=== PATIENT | female | born 1955 | race African-American/Black ===

== ENCOUNTER 2017-01-19 12:49 | Emergency (ER) | payer MEDICAID ==
[~2017-01-19] VITALS: Ht 160 cm; Wt 64.0 kg
[~2017-01-19 12:49] MED LIST: ASPI-1035 PO; ATOR40TA70 PO; HYDR-4134 PO; SERT25TA PO
[2017-01-19] MEDS ORDERED: LORAZEPAM 1MG TABLET PO ONE (14:00)
[2017-01-19 15:12] VITALS: BP 137/77
== END 2017-01-19 15:13 | disposition home or self-care (01) ==
LOC: ER 14:44
DX: F41.0 Panic disorder [episodic paroxysmal anxiety] (principal); I10 Essential (primary) hypertension; Z86.73 Personal history of transient ischemic attack (TIA), and cerebral infarction without residual deficits
CPT/HCPCS: 99283

== ENCOUNTER 2017-04-06 13:26 | Emergency (ER) | payer MEDICAID, OTHER ==
[~2017-04-06] VITALS: Ht 165.1 cm; Wt 77.0 kg
[~2017-04-06 13:26] MED LIST changes: -ASPI-1035 PO; +ASPI-1159 PO
[2017-04-06 18:03] VITALS: BP 128/76
[2017-04-06] MEDS ORDERED: LORAZEPAM 0.5MG TABLET PO ONE (18:15)
== END 2017-04-06 18:42 | disposition home or self-care (01) ==
LOC: ER 14:04
DX: F41.9 Anxiety disorder, unspecified (principal); R20.2 Paresthesia of skin; I10 Essential (primary) hypertension; Z86.73 Personal history of transient ischemic attack (TIA), and cerebral infarction without residual deficits
CPT/HCPCS: 99284; Z7610

== ENCOUNTER 2017-04-10 10:17 | Emergency (ER) | payer MEDICAID, OTHER ==
[~2017-04-10] VITALS: Ht 165.1 cm; Wt 77.0 kg
[2017-04-10 11:56] VITALS: BP 131/77
== END 2017-04-10 11:58 | disposition home or self-care (01) ==
LOC: ER 11:28
DX: F41.9 Anxiety disorder, unspecified (principal); I10 Essential (primary) hypertension; Z86.73 Personal history of transient ischemic attack (TIA), and cerebral infarction without residual deficits; Z79.82 Long term (current) use of aspirin
CPT/HCPCS: 99284

== ENCOUNTER 2018-05-26 13:30 | Inpatient (IN) | payer MEDICARE, MEDICAID ==
[~2018-05-26] VITALS: Ht 167.6 cm; Wt 71.4 kg
[2018-05-26] MEDS ORDERED: SODIUM CHLORIDE 0.9% 1,000 ML IV ONE (14:16)
[2018-05-26 15:22] LABS: BASOPHILS % 0.5 % (0.0-2.0); EOSINOPHILS % 0.3 % (0.0-5.0); HEMATOCRIT. 37.9 % (36.0-48.0); HEMOGLOBIN. 12.7 g/dL (12.0-16.0); LYMPHOCYTES % 29.4 % (20.0-50.0); MEAN CORPUSCULAR HEMOGLOBIN 29.5 pg (28.0-32.0); MEAN CORPUSCULAR VOLUME 88.4 fL (81.0-99.0); MEAN PLATELET VOLUME 11.2 fl (7.4-10.4); MONOCYTES % 7.6 % (2.0-8.0); NEUTROPHILS % 62.2 % (40.0-76.0); PLATELET 194 x1000/uL (130-400); RED BLOOD CELL COUNT 4.29 mill/uL (4.2-5.4); RED CELL DISTRIBUTION WIDTH 14.1 % (11.6-14.6)
[2018-05-26 15:27] LABS: INR 1.1; PROTHROMBIN TIME 11.4 sec (9.1-11.1)
[2018-05-26 15:40] LABS: CHLORIDE 107 mEq/L (98-107)
[2018-05-26 15:48] LABS: CLARITY URINE CLOUDY (CLEAR); COLOR URINE YELLOW (YELLOW); KETONES URINE NEGATIVE (NEGATIVE); LEUKOCYTE ESTERASE URINE NEGATIVE (NEGATIVE); NITRITE URINE NEGATIVE (NEGATIVE); OCCULT BLOOD URINE NEGATIVE (NEGATIVE); PROTEIN URINE NEGATIVE (NEGATIVE); SPECIFIC GRAVITY URINE 1.005 (1.005-1.030)
[2018-05-26 20:00] VITALS: BP 157/66
[2018-05-26] MEDS ORDERED: DEXTROSE 50% WATER 50ML SYRINGE IV PRN (22:15)
[2018-05-26] MEDS ORDERED: ONDANSETRON 4MG ODT PO PRN (22:15)
[2018-05-26] MEDS ORDERED: ACETAMINOPHEN 325MG TABLET PO PRN (22:15)
[2018-05-26 23:19] VITALS: BP 157/66
[2018-05-27] VITALS: BP 130/49
[2018-05-27 04:00] VITALS: BP 136/58
[2018-05-27] MEDS: BLOOD SUGAR DIAGNOSTIC STRIP TEST SCH ×4 (07:20→21:00)
[2018-05-27 07:34] LABS: BASOPHILS % 0.7 % (0.0-2.0); EOSINOPHILS % 1.1 % (0.0-5.0); HEMATOCRIT. 36.3 % (36.0-48.0); HEMOGLOBIN. 12.1 g/dL (12.0-16.0); LYMPHOCYTES % 45.4 % (20.0-50.0); MEAN CORPUSCULAR HEMOGLOBIN 29.5 pg (28.0-32.0); MEAN CORPUSCULAR VOLUME 88.3 fL (81.0-99.0); MEAN PLATELET VOLUME 10.9 fl (7.4-10.4); MONOCYTES % 8.9 % (2.0-8.0); NEUTROPHILS % 43.9 % (40.0-76.0); PLATELET 181 x1000/uL (130-400); RED BLOOD CELL COUNT 4.11 mill/uL (4.2-5.4); RED CELL DISTRIBUTION WIDTH 13.9 % (11.6-14.6)
[2018-05-27] MEDS: INSULIN LISPRO 100 UNITS/ML SUBCUT SCH ×4 (07:50→21:00)
[2018-05-27 07:59] LABS: CHLORIDE 110 mEq/L (98-107)
[2018-05-27 09:34] VITALS: BP 162/69
[2018-05-27] MEDS: NIFEDIPINE XL 30MG TAB PO SCH (12:45)
[2018-05-27 13:14] VITALS: BP 144/66
[2018-05-27] MEDS: HYDRALAZINE HCL 25MG TABLET PO SCH ×2 (14:42→22:02)
[2018-05-27] MEDS: ENOXAPARIN 40MG/0.4ML SYR SUBCUT SCH (14:48)
[2018-05-27] MEDS ORDERED: ATROPINE SULFATE 1MG/10ML SYR IV PRN (15:00)
[2018-05-27 17:15] VITALS: BP 161/60
[2018-05-27 19:26] LABS: *AMPHETAMINES SCREEN URINE NEGATIVE (NEGATIVE); *BARBITURATES SCREEN URINE NEGATIVE (NEGATIVE); *BENZODIAZEPINES SCREEN URINE NEGATIVE (NEGATIVE)
[2018-05-27 19:27] LABS: *COCAINE SCREEN URINE NEGATIVE (NEGATIVE); CANNABINOID URINE SCREEN NEGATIVE (NEGATIVE); METHADONE URINE SCREEN NEGATIVE (NEGATIVE); OPIATES URINE SCREEN NEGATIVE (NEGATIVE); PHENCYCLIDINE URINE SCREEN NEGATIVE (NEGATIVE)
[2018-05-27 20:00] VITALS: BP 170/72
[2018-05-27] MEDS: ATORVASTATIN CALCIUM 40MG TABLET PO SCH (21:55)
[2018-05-28] VITALS: BP 138/67
[2018-05-28 04:00] VITALS: BP 134/66
[2018-05-28 06:56] LABS: BASOPHILS % 0.7 % (0.0-2.0); EOSINOPHILS % 0.9 % (0.0-5.0); HEMATOCRIT. 40.4 % (36.0-48.0); HEMOGLOBIN. 13.5 g/dL (12.0-16.0); LYMPHOCYTES % 38.6 % (20.0-50.0); MEAN CORPUSCULAR HEMOGLOBIN 29.8 pg (28.0-32.0); MONOCYTES % 8.5 % (2.0-8.0); NEUTROPHILS % 51.3 % (40.0-76.0); PLATELET 192 x1000/uL (130-400); RED BLOOD CELL COUNT 4.54 mill/uL (4.2-5.4); RED CELL DISTRIBUTION WIDTH 13.9 % (11.6-14.6)
[2018-05-28] MEDS: HYDRALAZINE HCL 25MG TABLET PO SCH ×3 (06:56→21:33)
[2018-05-28] MEDS: BLOOD SUGAR DIAGNOSTIC STRIP TEST SCH ×4 (07:20→20:09)
[2018-05-28] MEDS: INSULIN LISPRO 100 UNITS/ML SUBCUT SCH ×4 (07:50→20:09)
[2018-05-28 08:00] LABS: CHLORIDE 108 mEq/L (98-107)
[2018-05-28] MEDS: NIFEDIPINE XL 30MG TAB PO SCH (08:37)
[2018-05-28] MEDS: ENOXAPARIN 40MG/0.4ML SYR SUBCUT SCH (08:40)
[2018-05-28] MEDS: ASPIRIN 81MG TABLET PO SCH (08:40)
[2018-05-28 08:51] VITALS: BP 167/65
[2018-05-28 12:29] VITALS: BP 149/64
[2018-05-28] MEDS ORDERED: DOCUSATE SODIUM 250MG CAPSULE PO PRN (15:00)
[2018-05-28] MEDS ORDERED: LORAZEPAM 0.5MG TABLET PO PRN (15:15)
[2018-05-28 17:21] VITALS: BP 125/69
[2018-05-28 20:00] VITALS: BP_SYST 150; BP_SYST 156; BP_SYST 163; BP_DIAS 60; BP_DIAS 68
[2018-05-28] MEDS: ATORVASTATIN CALCIUM 40MG TABLET PO SCH (20:28)
[2018-05-28] MEDS: NIFEDIPINE XL 60MG TAB PO SCH (20:28)
[2018-05-29] VITALS (8 sets, daily range): BP systolic 114–136; BP diastolic 60–76
[2018-05-29] MEDS: HYDRALAZINE HCL 25MG TABLET PO SCH ×2 (06:24→13:24)
[2018-05-29] MEDS: BLOOD SUGAR DIAGNOSTIC STRIP TEST SCH ×2 (06:24→13:09)
[2018-05-29] MEDS: INSULIN LISPRO 100 UNITS/ML SUBCUT SCH ×2 (07:50→12:50)
[2018-05-29] MEDS: ASPIRIN 81MG TABLET PO SCH (09:23)
[2018-05-29] MEDS: NIFEDIPINE XL 60MG TAB PO SCH (09:24)
[2018-05-29] MEDS: ENOXAPARIN 40MG/0.4ML SYR SUBCUT SCH (09:25)
== END 2018-05-29 16:44 | disposition home or self-care (01) | DRG 309 ==
LOC: ER 13:30 → 6WST 15:33 → EDBEDREQ 15:36 → ENRESERV 19:34 → 6WST 05-28 08:08
PROVIDERS: ADMIT Internal Medicine; ATTEND Internal Medicine
DX: R00.1 Bradycardia, unspecified (principal); I69.354 Hemiplegia and hemiparesis following cerebral infarction affecting left non-dominant side; E87.0 Hyperosmolality and hypernatremia; I10 Essential (primary) hypertension; F41.9 Anxiety disorder, unspecified; R20.0 Anesthesia of skin; R82.71 Bacteriuria; M19.90 Unspecified osteoarthritis, unspecified site; R73.9 Hyperglycemia, unspecified; E78.00 Pure hypercholesterolemia, unspecified; E86.0 Dehydration; F32.9 Major depressive disorder, single episode, unspecified; Z82.49 Family history of ischemic heart disease and other diseases of the circulatory system; I69.322 Dysarthria following cerebral infarction
CPT/HCPCS: 36415; 70450; 70544; 70553; 71045; 80048; 80053; 80305; 81003; 82962; 83690; 83735; 83880; 84443; 84484; 85025; 85610; 93005; 93306; 96361; 96374; 99285; J1650; J7030

== ENCOUNTER 2022-05-23 15:10 | Emergency (ER) | payer MEDICARE, MEDICAID ==
[~2022-05-23] VITALS: Ht 157.5 cm; Wt 61.0 kg
[~2022-05-23 15:10] MED LIST changes: -ASPI-1159 PO; +ASPI-1497 PO; +CALC-997 PO; -HYDR-4134 PO; +HYDR-4135 PO; +LISI-649 PO
[2022-05-23 16:01] VITALS: BP 153/79
== END 2022-05-24 02:34 | disposition left against medical advice (07) ==
LOC: ER 15:10
DX: Z53.21 Procedure and treatment not carried out due to patient leaving prior to being seen by health care provider (principal)

== ENCOUNTER 2023-10-14 11:50 | Emergency (ER) | payer MEDICARE, MEDICAID ==
[~2023-10-14] VITALS: Ht 162.6 cm; Wt 65.8 kg
[2023-10-14 11:53] VITALS: O2SAT 99
[2023-10-14 13:28] LABS: BASOPHILS % 0.4 % (0.0-2.0); EOSINOPHILS % 0.4 % (0.0-5.0); HEMATOCRIT. 40.6 % (36.0-48.0); HEMOGLOBIN. 13.5 g/dL (12.0-16.0); LYMPHOCYTES % 24.2 % (20.0-50.0); MEAN CORPUSCULAR HEMOGLOBIN 28.7 pg (28.0-32.0); MEAN CORPUSCULAR HGB CONC 33.3 g/dL (31.0-37.0); MEAN CORPUSCULAR VOLUME 86.3 fL (81.0-99.0); MEAN PLATELET VOLUME 9.1 fl (7.4-10.4); MONOCYTES % 7.4 % (2.0-8.0); NEUTROPHILS % 67.6 % (40.0-76.0); PLATELET 237 x1000/uL (130-400); RED BLOOD CELL COUNT 4.71 mill/uL (4.2-5.4); RED CELL DISTRIBUTION WIDTH 14.3 % (11.6-14.6); WHITE BLOOD COUNT 6.4 x1000/uL (4.5-11.0)
[2023-10-14 13:49] LABS: ALANINE AMINOTRANSFERASE 33 IU/L (10-49); ALBUMIN 4.3 g/dL (3.2-4.8); ASPARTATE AMINOTRANSFERASE 28 IU/L (<34); BILIRUBIN TOTAL 1.2 mg/dL (0.1-1.0); CALCIUM 9.5 mg/dL (8.7-10.4); CARBON DIOXIDE 28 mEq/L (21-32); CHLORIDE 106 mEq/L (98-107); GLUCOSE 108 mg/dL (70-105); POTASSIUM 3.5 mEq/L (3.5-5.1); PROTEIN TOTAL 7.2 g/dL (6.0-8.3); SODIUM 141 mEq/L (136-145); UREA NITROGEN BLOOD 12 mg/dL (9-23)
[2023-10-14 15:35] VITALS: BP 152/83; PULSE 83; RESP 18; TEMP 98.2
== END 2023-10-14 15:34 | disposition home or self-care (01) ==
LOC: ER 11:50
DX: R20.0 Anesthesia of skin (principal); Z86.73 Personal history of transient ischemic attack (TIA), and cerebral infarction without residual deficits
CPT/HCPCS: 36415; 80053; 85025; 99284